=== PATIENT | female | born 1985 | race Caucasian/White ===

== ENCOUNTER 2025-01-26 11:20 | Emergency (ER) | payer OTHER, SELFPAY ==
[2025-01-26 11:22] VITALS: BP 141/69; PULSE 80; RESP 16; TEMP 36.3; O2SAT 100
[2025-01-26] MEDS: TETANUS,DIPHTHERIA,AC PERTUSSIS ADULT (0.5 ML) BOOSTRIX IM (13:33)
[2025-01-26 13:37] VITALS: BP 115/74; PULSE 63; RESP 15; O2SAT 100
--- OUTSIDE RECORDS SUMMARY | 2025-01-26 18:00 | XMS_ITS | Clinical Summary ---
Author Organization [facility] Address [address] [place] [address] Care Team Providers Care Copy Room Technician Name Role Phone Trinity Bearden PA-C Unavailable Source Comments [facility],non-owned Affiliates and Associated Physician Practices is amultiple site organization consisting of ambulatory clinics and hospital sitesin [place], [place], [place] and [place]. This disclosure is being madepursuant to the Care Everywhere program and may not contain all information available regarding this patient. Last updated 18.[facility] Allergies Active Allergy Reactions Criticality Noted Date Comments Hydrocodone Itching,Rash,Unknown Medium 01/07/2014 Medications * Be aware that medications may not be up to date on this document. Alwaysverify current medications with the patient. [place]-3 Fatty Acids (Fish Oil [place]-3) 1000 MG CAPS Active Misc Natural Products (Beet Root) 500 MG CAPS Active ibuprofen (Motrin) 600 MG tablet Take 1 (one) tablet by mouth every 6 hours as needed Active URINARY HEALTH/CRANBER RY PO Active SUPER B COMPLEX/C PO Active Alpha-Lipoic Acid 200 MG Active multiple vitamins with minerals tablet Take 1 (one) tablet by mouth daily with food Active ibuprofen (Motrin) 200 MG tabletIndicati ons:Pain Take 4 (four) tablets by mouth 3 times daily as needed with food for Pain Start after 3 days from surgery if needed Reasons: Pain 5 Active acetaminophen (Tylenol) 500 MG tablet Take 2 (two) tablets by mouth 3 times daily Maximum allowable Acetaminophen amount = 4 Grams (4000 mg) / 24 hours. 5 Active oxyCODONE, immediate release, (Roxicodone) 5 MG tabletIndicati ons:Postoperat serg Pain Take 1 (one) tablet by mouth every 6 hours as needed for Pain (Moderate or Severe Pain) Reasons: Pain Following an Operation 28 tablet Active docusate sodium (Colace) 100 MG capsule Take 1 (one) capsule by mouth 2 times daily as needed for Constipation Active ondansetron, disintegrating , (Zofran ODT) 4 MG tablet Take 1 (one) tablet by mouth every 8 hours as needed for Nausea/Vomiting Allow tablet to dissolve on the tongue 10 tablet 5 Active Encounters Date Type Department Care Team Description 11/06/2024 11:45 AM CDT Office Visit [facility] [address] [place] [address], [address] [address] Carline Sanchez PA S/P right knee arthroscopy (Primary Dx) 11/06/2024 Travel from Last 3 Months Social History Tobacco Use Types Packs/Day Years Used Date Smoking Tobacco: Some Days Cigarettes Smokeless Tobacco: Never Comments:Pt vape as well Alcohol Use Standard Drinks/Week Comments Yes 0 (1 standard drink = 0.6 oz pur e alcohol) occas PHQ-2 Answer Date Recorded Patient Health Questionnaire-2 Score 0 10/06/2024 Comments Unknown Sex and Gender Information Value Date Recorded Sex Assigned at Female 09/18/2024 1:34 PM ROLL HAND Legal Sex Female 4:08 PM ROLL HAND Gender Identity Female 09/18/2024 1:34 PM ROLL HAND Sexual Orientation Straight 09/18/2024 1: 34 PM ROLL HAND Last Filed Vital Signs Vital Sign Reading Time Taken Comments Blood Pressure 124/68 10/24/2024 8:25 AM ROLL HAND Pulse 74 10/24/2024 8:30 AM ROLL HAND Temperature 36 C (96.8 F) 10/24/2024 8:01 AM ROLL HAND Respiratory Rate 16 10/24/2024 8:30 AM ROLL HAND Oxygen Saturation 100% 10/24/2024 8:30 AM ROLL HAND Inhaled Oxygen Concentration - - Weight 123.4 kg (272 lb) 10/24/2024 6:21 AM ROLL HAND Height 172.7 cm (5' 8) 10/24/2024 6:21 AM ROLL HAND Body Mass Index 41.36 10/24/2024 6:21 AM ROLL HAND Plan of Treatment Upcoming Encounters Date Type Department Care Team (Late st Contact Info) Description 01/29/2025 2:10 PM CDT Office Visit [facility] [id number] [address] [place] [address] [facility] [address] [place] [address] Health Maintenance Due Date Last Done Comments LIPID TESTING 1984 MAMMOGRAM 1984 PAP SMEAR 1984 HIV SCREENING 11/16/1999 HEPATITIS C SCREENING 11/11/2002 DTAP/TDAP/TD VACCINES (1 - Tdap) 11/16/2003 HEPATITIS B VACCINE (1 of 3 - 19+ 3-dose series) 11/16/2003 PNEUMOCOCCAL VACCINE (1 of 2 - PCV) 11/16/2003 COVID-19 VACCINE (1 - 2023-2 5 season) 2024 INFLUENZA VACCINE (Season Ended) 2025 ZOSTER VACCINE (1 of 2) 2034 DEPRESSION SCREENING Completed 09/16/2024 HIB VACCINE Aged Out No longer eligi ble based on patient's age to complete this topic HPV VACCINE Aged Out No longer eligi ble based on patient's age to complete this topic MENINGOCOCCAL (Group B) VACC INE SHARED DECISION-MAKING Aged Out No longer eligibl e based on patient's age to complete this topic MENINGOCOCCAL GROUPS A/C/Y/W VACCINE Aged Out No longer eligible b ased on patient's age to complete this topic Insurance MEDICAID [facility] LAUREL GALEANO Care Teams Copy Room Technician Relationship Specialty Start Date End Date Trinity Bearden, [facility] [address] [place] [id number] PCP - [facility] Medicaid ST 11/26/24
--- OUTSIDE RECORDS SUMMARY | 2025-01-26 18:00 | XMS_ITS | Clinical Summary ---
Author Organization [facility] Address [address] [place] [address] Care Team Providers Care Cutter And Paster Press Clippings Name Role Phone Unavailable Primary Care Provider Unavailabl e Encounters Date Type Department Care Team Description 01/21/2025 External Device Data [facility] ABSTRACTION Provider, Abstract 01/15/2025 External Device Data [facility] Provider, Abstract 01/14/2025 External Device Data [facility] Provider, Abstract 11/13/2024 External Device Data [facility] Provider, Abstract 11/13/2024 External Device Data [facility] Provider, Abstract 11/12/2024 External Device Data [facility]STRACTION Provider, Abstract 11/02/2024 External Device Data [facility] Provider, Abstract 11/01/2024 External Device Data [facility] ABSTRACTION Provider, Abstract 10/30/2024 External Device Data [facility] ABSTRACTION Provider, Abstract from Last 3 Months Social History Tobacco Use Types Packs/Day Years Used Date Smoking Tobacco: Never Assessed Comments Unknown Sex and Gender Information Value Date Recorded Sex Assigned at Not on file 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
--- OUTSIDE RECORDS SUMMARY | 2025-01-26 18:00 | XMS_ITS | Encounter Summary ---
Author Organization [facility] Address [address] [place] [address] Care Team Providers Care Patient Support Representative Name Role Phone Unavailable Primary Care Provider Unavailabl e Encounter Details Date Type Department Care Team (Late st Contact Info) Description 09/10/2003 Outpatient [facility] [address] [facility] 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
--- OUTSIDE RECORDS SUMMARY | 2025-01-26 18:00 | XMS_ITS | Encounter Summary ---
Author Organization [employer] [employer] [facility] Address [address] [place] [address] Care Team Providers Care Senior Sales Operations Manager Name Role Phone Unavailable Primary Care Provider Unavailabl e Encounter Details Date Type Department Care Team (Late st Contact Info) Description 07/31/2003 Outpatient [facility] [address] 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
== END 2025-01-26 13:38 | disposition home or self-care (01) ==
PROVIDERS: Emergency Provider Emergency Medicine
DX: T22.111A Burn of first degree of right forearm, initial encounter (principal); T31.0 Burns involving less than 10% of body surface; X10.0XXA Contact with hot drinks, initial encounter; Z23 Encounter for immunization
CPT/HCPCS: 90471; 90715; 99282